=== PATIENT | male | born 1995 | race Caucasian/White ===

== ENCOUNTER 2017-03-16 14:13 | Emergency (ER) | payer OTHER ==
[~2017-03-16] VITALS: Ht 190.5 cm; Wt 81.6 kg
[~2017-03-16 14:13] MED LIST: ONDA4TAB10 PO
--- NOTE | 2017-03-16 15:05 | PHYS DOC ---
Past History Past Medical History: No Pertinent History Past Surgical History: No Surgical History Alcohol Use: None Drug Use: None Adult General Chief Complaint Chief Complaint: SKIN PROBLEM HPI HPI Ed presents to the ED with rash that started 10days ago. His rash is itchy , raised, red and diffuse but mostly on the R LE. He has no other associated symptoms Review of Systems Review of Systems Constitutional: Denies fever or chills [] Eyes: Denies change in visual acuity, redness, or eye pain [] HENT: Denies nasal congestion or sore throat [] Respiratory: Denies cough or shortness of breath [] Cardiovascular: No additional information not addressed in HPI [] GI: Denies abdominal pain, nausea, vomiting, bloody stools or diarrhea [] : Denies dysuria or hematuria [] Musculoskeletal: Denies back pain or joint pain [] Integument: Neg except HPI Neurologic: Denies headache, focal weakness or sensory changes [] Endocrine: Denies polyuria or polydipsia [] Current Medications Current Medications Current Medications Medications (Trade) Dose Ordered Sig/Idania Start Time Stop Time Status Last Admin Dose Admin Dexamethasone Sodium Phosphate (Decadron) 4 mg 1X ONCE 03/16/17 15:00 03/16/17 15:01 UNV Allergies Allergies Allergies Coded Allergies Type Severity Reaction Last Updated Verified No Known Drug Allergies 07/27/16 No Physical Exam Physical Exam Constitutional: Well developed, well nourished, no acute distress, non-toxic appearance. [] HENT: Normocephalic, atraumatic, bilateral external ears normal, oropharynx moist, no oral exudates, nose normal. [] Eyes: PERRLA, EOMI, conjunctiva normal, no discharge. [] Cardiovascular:Heart rate regular rhythm, no murmur [] Lungs & Thorax: Bilateral breath sounds clear to auscultation [] Skin: Warm, dry, no erythema, Rash located on more than 50% of the R lower leg as well as minimal rash noted on all other extremities. macular rash with vesicals consistent with contact dermatitis Extremities: No tenderness, no cyanosis, no clubbing, ROM intact, no edema. [] Neurologic: Alert and oriented X 3, normal motor function, normal sensory function, no focal deficits noted. [] Psychologic: Affect normal, judgement normal, mood normal. [] Current Patient Data Vital Signs Vital Signs Date Time Temp Pulse Resp B/P (MAP) Pulse Ox O2 Delivery O2 Flow Rate FiO2 03/16/17 14:13 99.0 50 20 97 Room Air EKG EKG [] Radiology/Procedures Radiology/Procedures [] Course & Med Decision Making Course & Med Decision Making Symptoms consistent with poison tasia based on history and physical. Moderate symptoms. Will give IM decadron as well as script for topical steroid. He was given a script for a PO steroid to start only if his symptoms worsen. Dragon Disclaimer Dragon Disclaimer This chart was dictated in whole or in part using Voice Recognition software in a busy, high-work load, and often noisy Emergency Department environment. It may contain unintended and wholly unrecognized errors or omissions. Departure Departure: Impression: Primary Impression: Poison tasia Disposition: HOME, SELF-CARE Condition: STABLE Referrals: HAILEY ASHER DO, [facility] (PCP) Patient Instructions: Poison Tasia Additional Instructions: Ed was seen in the ED for a rash. No emergency medical condition was found during the history and physical exam. His symptoms consistent with poison tasia. He was given a dose of steroids in the ED as well as a script for topical steroid. He was also given a script for an oral steroid to start only if his symptoms worsen. He was advised to follow up with his primary care doctor as needed for further management RAJENDRA FLOREZ MD Mar 16, 2017 15:05
[2017-03-16] MEDS ORDERED: DEXAMETHASONE SOD PHOS 4 MG/ML VIAL IM ONE (15:15)
[2017-03-16 15:20] VITALS: BP 113/56
== END 2017-03-16 15:20 | disposition home or self-care (01) ==
LOC: ER 14:13
DX: L23.7 Allergic contact dermatitis due to plants, except food (principal)
CPT/HCPCS: 96372; 99283; J1100